=== PATIENT | male | born 1960 | race Caucasian/White ===

== ENCOUNTER 2020-12-11 09:04 | Outpatient (CLI) | payer OTHER, SELFPAY ==
--- NOTE | 2020-12-11 09:24 | MR_ITS ---
WS: [id number] MRI LUMBAR SPINE NONCONTRAST HISTORY: LUMBAR BACK PAIN WITH RADICULOPATHY/CHRONIC LOW BACK PAIN COMPARISON: 06/25/2005 TECHNIQUE: Sagittal and axial multisequence imaging is submitted. LEFT curvature lower lumbar vertebral bodies. Mild straightening of the and posterior lumbar vertebra l bodies. Mild disc space narrowing and desiccation at L4-5 and L5-S1. No fractures or marrow edema. Conus terminates normally at L1-2 disc level. L1-L2: Normal. L2-L3: Normal. L3-L4: Mild diffuse annular disc bulging with facet and ligamentum flavum arthritis. Minimal disc enc roachment upon the traversing L4 nerve root but no significant stenosis. Very mild foraminal narrowin g. L4-L5: Mild annular disc bulging and osteophytic ridging. Marked hypertrophy of the articular facets and ligamentum flavum hypertrophy. Facet joint arthritis and hypertrophy encroaches into the foramina bilaterally. Disc and osteophyte contacting the exiting L4 nerve roots bilaterally, greater on the R IGHT than the LEFT. There is also mild facet joint synovitis on the RIGHT. Mild central and subarticu lar recess narrowing. L5-S1: Diffuse annular disc bulging with a focal central disc protrusion which extends greatest to th e RIGHT. No significant contact on the S1 nerve roots. There is moderate bilateral subarticular reces s and foraminal stenosis and a large part due to the scoliosis and bony hypertrophy. MR/MR lumbar spine wo con* [id number] IMPRESSION: 1. Since the prior examination from 2005 there is been a progression of degene rative scoliosis in the lower lumbar spine with progression of stenosis. 2. Mild central and subarticular recess stenosis at L4-5 due to the scoliosis , disc and hypertrophic bone formation. 3. Moderate bilateral foraminal stenosis at L4-5 due to the scoliosis, disc an d bone hypertrophy. 4. Moderate bilateral subarticular recess and foraminal stenosis at L5-S1. 5. Mild disc and encroachment upon the traversing L4 nerve roots with no high- grade stenosis.
--- NOTE | 2020-12-11 09:45 | XR_ITS ---
WS: [id number] LUMBAR SPINE: 3 VIEWS TECHNIQUE: AP, lateral and L5-S1 spot. HISTORY: BACK PAIN, LUMBAR REGION WITH RADICULOPATHY COMPARISON: None available. Mild LEFT curvature lower lumbar spine. No fractures. Facet joint arthritis and narrowing at L4-5 and L5-S1 is at least moderate. Pedicles are all identified. Mild asymmetric narrowing of the L4-5 and L5-S1 disc spaces. SI joints are symmetric bilaterally. No soft tissue abnormalities. XR/XR lumbar spine 2-3V* [id number] IMPRESSION: 1. Disc space narrowing with moderate facet joint arthritis at L4-5 and L5-S1. 2. No lumbar spine fracture.
== END 2020-12-11 09:05 | disposition home or self-care (01) ==
PROVIDERS: PCP Family Medicine; Visit Provider Family Medicine
DX: M54.16 Radiculopathy, lumbar region (principal); M48.061 Spinal stenosis, lumbar region without neurogenic claudication; M48.07 Spinal stenosis, lumbosacral region
CPT/HCPCS: 72100; 72148

== ENCOUNTER 2021-02-06 14:17 | Outpatient (RCR) | payer OTHER, SELFPAY | END 2021-02-22 23:59 | disposition home or self-care (01) | LOC: SPT 14:17 | PROVIDERS: PCP Family Medicine; Referring Provider Physician Assistant; Visit Provider Physician Assistant | DX: M51.37 Other intervertebral disc degeneration, lumbosacral region (principal); M54.50 Low back pain, unspecified; M79.605 Pain in left leg | CPT/HCPCS: 97032; 97110; 97161 ==

== ENCOUNTER 2021-02-23 06:00 | Outpatient (RCR) | payer OTHER, SELFPAY | END 2021-03-25 23:59 | disposition home or self-care (01) | LOC: SPT 06:00 | PROVIDERS: PCP Family Medicine; Referring Provider Physician Assistant; Visit Provider Physician Assistant | DX: M51.37 Other intervertebral disc degeneration, lumbosacral region (principal); M54.50 Low back pain, unspecified; M79.605 Pain in left leg | CPT/HCPCS: 97110 ==

== ENCOUNTER 2021-07-07 12:51 | Emergency (ER) | payer OTHER, SELFPAY ==
[2021-07-07] VITALS (9 sets, daily range): BP systolic 132–184; BP diastolic 72–100; PULSE 55–88; RESP 18–24; TEMP 36.6–36.7; O2SAT 95–98; BMI 28.5
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
[2021-07-07] MEDS: morphine 4 mg/mL SDV 1 mL IM (13:40)
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
--- NOTE | 2021-07-07 13:48 | XRR_ITS ---
PROCEDURE INFORMATION: Exam: XR Left Foot Exam date and time: 07/07/2021 1:54 PM Age: 60 years old Clinical indication: Injury or trauma; Fall; Blunt trauma; Foot; Left; Additional info: Fall pain TECHNIQUE: Imaging protocol: XR Left foot. Views: 3 or more views. COMPARISON: CR (LOW EXM, ) 07/07/2021 1:53 PM FINDINGS: Bones/joints: Bones intact and normally aligned. Soft tissues: Normal. XR/XR foot LT min 3V* [id number] IMPRESSION: No acute findings.
[2021-07-07] MEDS: HYDROmorphone 1 mg/mL INJ 1 mL 0.5 MG IVP ×2 (14:05→15:45)
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
--- NOTE | 2021-07-07 17:07 | CTR_ITS ---
PROCEDURE INFORMATION: Exam: CT Left Lower Extremity Without Contrast, Ankle Exam date and time: 07/07/2021 5:56 PM Age: 60 years old Clinical indication: Injury or trauma; Fall; Blunt trauma; Ankle; Left; Additional info: Significant pain and swelling TECHNIQUE: Imaging protocol: CT of the Left lower extremity without contrast was performed. Exam focused on the ankle. Radiation optimization: All CT scans at this facility use at least one of these dose optimization techniques: automated exposure control; mA and/or kV adjustment per patient size (includes targeted exams where dose is matched to clinical indication); or iterative reconstruction. COMPARISON: CR (LOW EXM, ) 07/07/2021 1:53 PM RADIATION DOSE METRICS: Total DLP (mGy-cm): 94.43 FINDINGS: Bones/joints: Alignment is normal. No acute fracture. There is a corticated ossicle at the tip of the medial malleolus which could represent sequelae of remote trauma or accessory ossification center. No joint effusion. Soft tissues: Visible soft tissues are unremarkable. CT/CT ankle LT wo con* 11864 IMPRESSION: No acute findings.
--- NOTE | 2021-07-07 19:09 | PC.NURSE ---
1899 Assumed pt care from Fiorella ANDERSON
--- NOTE | 2021-07-10 12:25 | DCPLANNER ---
Addendum entered by Sabrina Blevins 07/19/21 16:12: Patient had a follow up appointment scheduled for 07.17.21 with ortho - patient did attend appointment. Addendum entered by Sabrina Blevins 07/18/21 15:12: Patient had a follow up appointment scheduled for 07.17.[address] Snow at ortho - patient did attend appointment. Original Note: marketing sales manager had message to schedule a follow up appointment for patient with ortho. marketing sales manager sent patients information to the front office staff at ortho. Patients information will be printed and reviewed. Clinic will call patient with appointment information.
== END 2021-07-07 19:52 | disposition home or self-care (01) ==
PROVIDERS: Emergency Provider Emergency Medicine; PCP Family Medicine
DX: M79.605 Pain in left leg (principal); Z87.891 Personal history of nicotine dependence
CPT/HCPCS: 70450; 73502; 73560; 73590; 73610; 73630; 73700; 96374; 96375; 96376; 99284; E0114; J1170; J2270; L4361

== ENCOUNTER → 2021-07-17 10:39 | Outpatient (BNVA) | payer OTHER, SELFPAY | PROVIDERS: PCP Family Medicine; Referring Provider Emergency Medicine; Visit Provider Specialist | DX: M25.571 Pain in right ankle and joints of right foot (principal) | CPT/HCPCS: 73610 ==

== ENCOUNTER → 2023-04-09 07:46 | Outpatient (BNVA) | payer OTHER, SELFPAY | PROVIDERS: PCP Family Medicine; Visit Provider Family Medicine | DX: E53.8 Deficiency of other specified B group vitamins (principal); Z51.81 Encounter for therapeutic drug level monitoring; Z13.220 Encounter for screening for lipoid disorders; R53.81 Other malaise; R53.83 Other fatigue; I10 Essential (primary) hypertension | CPT/HCPCS: 80053; 80061; 82607; 84443; 85025 ==

== ENCOUNTER → 2023-08-05 08:41 | Outpatient (BNVA) | payer OTHER, SELFPAY | PROVIDERS: PCP Family Medicine; Visit Provider Podiatrist Foot & Ankle Surgery | DX: M79.672 Pain in left foot (principal); M72.2 Plantar fascial fibromatosis | CPT/HCPCS: 73630 ==